=== PATIENT | female | born 1940 | race Caucasian/White ===

== ENCOUNTER 2025-01-07 12:19 | Emergency (ER) | payer OTHER ==
[~2025-01-07] VITALS: Ht 167.6 cm; Wt 65.5 kg
[~2025-01-07 12:19] MED LIST: BRIM0.2S17 EACHEYE; FURO20TA4 PO; LATA0.008 EACHEYE; LEVO25TA6 PO; POTA8TAB38 PO
[2025-01-07 12:41] VITALS: BP 134/84; TEMP 98.4
[2025-01-07 12:45] VITALS: PULSE 81; RESP 17; O2SAT 97
--- NOTE | 2025-01-07 13:34 | ED.PDOC ---
SOB-HPI HPI Comments 84 year old female presents to the ED with chief complaint of SOB. Patient reports that she has been experiencing SOB with tightness in her chest for the past 2 days, using her albuterol breathing treatments through a nebulizer every 6 hours. Patient relays that she believes her symptoms were aggravated by environmental allergies. Patient states she is taking Lasix for leg edema at this time. Patient declines to have steroids ordered for her along with declining to be admitted today. Patient denies any chest pain, cough, fever, chills, dizziness, or hemoptysis. Chief Complaint: Shortness of Breath Time Seen by MD: 13:29 Reviewed notes: Nurses Notes, Medications, Allergies Information Source: Patient, Spouse Mode of Arrival: EMS Severity: Moderate Timing: Days Duration: Since onset Context: At Rest PE Risk Factors: None History of: Asthma Prehospital treatment: Breathing Tx Modifying Factors: Nothing Associated Signs and Symptoms: None Past Medical History PAST MEDICAL HISTORY: Asthma, Thyroid Surgical History: Denies all surgeries VACUUM METALIZING SUPERVISOR History: Denies all VACUUM METALIZING SUPERVISOR Hx Family History Family History: Reviewed,noncontributory to illness Social History Smoker: Non-Smoker Alcohol: Denies ETOH Use Drugs: Denies Drug Use Lives In: Home Constitutional: denies: chills, diaphoresis, fatigue, fever, malaise, sweats, weakness, others EENTM: denies: blurred vision, double vision, ear bleeding, ear discharge, ear drainage, ear pain, ear ringing, eye pain, eye redness, hearing loss, mouth pain, mouth swelling, nasal discharge, nose bleeding, nose congestion, nose pain, photophobia, tearing, throat pain, throat swelling, voice changes, others Respiratory: reports: shortness of breath; denies: cough, hemoptysis, orthopnea, SOB at rest, SOB with excertion, stridor, wheezing, others Cardiovascular: denies: chest pain, dizzy spells, diaphoresis, Dyspnea on exertion, edema, irregular heart beat, left arm pain, lightheadedness, palpitations, PND, syncope, others Gastrointestinal: denies: abdomen distended, abdominal pain, blood streaked bowels, constipated, diarrhea, dysphagia, difficulty swallowing, hematemesis, melena, nausea, poor appetite, poor fluid intake, rectal bleeding, rectal pain, vomiting, others Genitourinary: denies: abnormal vagina bleeding, burning, dyspareunia, dysuria, flank pain, frequency, hematuria, incontinence, pain, , vagina discharge, urgency, others Neurological: denies: dizziness, fainting, headache, left sided numbness, left sided weakness, numbness, paresthesia, pre-existing deficit, right sided numbness, right sided weakness, seizure, speech problems, tingling, tremors, weakness, others Musculoskeletal: denies: back pain, gout, joint pain, joint swelling, muscle pain, muscle stiffness, neck pain, others Integumetry: denies: bruises, change in color, change in hair/nails, dryness, laceration, lesions, lumps, rash, wounds, others Allergic/Immunocompromised: denies: Difficulty Healing, Frequent Infections, Hives, Itching, others Hematologic/Lymphatic: denies: anemia, blood clots, easy bleeding, easy bruising, swollen glands, others Endocrine: denies: excessive hunger, excessive sweating, excessive thirst, excessive urination, flushing, intolerance to cold, intolerance to heat, unexplained weight gain, unexplained weight loss, others Psychiatric: denies: anxiety, bipolar disorder, depression, hopeless, panic disorder, schizophrenia, sleepless, suicidal, others All Other Systems: Reviewed and Negative Physical Exam General Appearance: No Apparent Distress HEENT: Other (Pupils and face symmetric. Moist mucous membranes.) Neck: Full Range of Motion, Normal Inspection Respiratory: Decreased Breath Sounds, No Accessory Muscle Use, No Respiratory Distress, Other (Note: Patient examined while on supplemental oxygen at 2 L nasal cannula) Cardiovascular: No JVD, No Murmur, Regular Rate/Rhythm Breast Exam: Deferred Gastrointestinal: Non Tender, Soft Genitalia: Deferred Pelvic: Deferred Rectal: Deferred Extremities: Leg edema, Normal range of motion, Non-tender, Pedal edema Musculoskeletal : Apperance: Normal Neurologic: Alert (Oriented x4), Normal Affect, Normal Mood, Other (Ambulatory without difficulty.) Cerebellar Function: NOT DONE Reflexes: NOT DONE Skin: Dry, Normal Color, Warm Lymphatic: NOT DONE EKG EKG : Comments Sinus rhythm, rate 88, normal intervals, normal axis, normal QRS, nonspecific T change. Was a procedure done? Was a procedure done?: No Differential Dx Differential Diagnosis: Asthma, Bronchitis, CHF, COPD, Hyperventilation, Myocardial infarction, Pneumonia, Pulmonary Embolism, Respiratory Distress, URI X-Ray, Labs, Meds, VS Vital Signs Date Time Temp Pulse Resp B/P (MAP) Pulse Ox O2 Delivery O2 Flow Rate FiO2 01/07/25 12:45 81 17 97 Nasal Cannula* 3 32 01/07/25 12:41 81 17 97 Nasal Cannula 2.0 01/07/25 12:41 98.4 81 17 134/84 (101) 97 98.4 01/07/25 12:37 16 94 Nasal Cannula* 4 36 01/07/25 12:33 98.4 89 16 143/90 (107) 94 98.4 01/07/25 12:23 88 Lab Test 01/07/25 15:02 01/07/25 14:03 01/07/25 13:38 Range/Units Troponin I High Sensitivity 24 23 </=34 ng/L Urine Color Yellow Yellow Urine Clarity Clear Clear Urine pH 5.5 5.0-9.0 Urine Specific Ruby 1.016 1.001-1.035 Urine Protein Trace H Negative Urine Ketones Negative Negative Urine Blood Negative Negative /uL Urine Nitrite Negative Negative Urine Bilirubin Negative Negative Urine Urobilinogen Normal Negative mg/dL Urine Leukocyte Esterase 1+ Negative /uL Urine RBC 1 0 - 4 /hpf Urine Microscopic WBC 12 H 0-5 /HPF Urine Squamous Epithelial Cells Few <5 /hpf Urine Bacteria Few H None Seen /hpf Urine Hyaline Casts Few 0 - 2 /lpf Urine Glucose Normal Normal mg/dL White Blood Count 7.0 4.4-10.8 10^3/uL Red Blood Count 4.49 4.0-5.20 10^6/uL Hemoglobin 13.2 12.2-16.2 g/dL Hematocrit 39.7 36.0-46.0 % Mean Corpuscular Volume 88.3 80.0-100.0 fL Mean Corpuscular Hemoglobin 29.3 28.0-32.0 pg Mean Corpuscular Hemoglobin Concent 33.1 32.0-36.0 g/dL Red Cell Distribution Width 17.3 H 11.8-14.3 % Platelet Count 257 140-450 10^3/uL Mean Platelet Volume 8.2 6.9-10.8 fL Neutrophils (%) (Auto) 83.5 H 37.0-80.0 % Lymphocytes (%) (Auto) 10.1 10.0-50.0 % Monocytes (%) (Auto) 4.9 0.0-12.0 % Eosinophils (%) (Auto) 0.7 0.0-7.0 % Basophils (%) (Auto) 0.8 0.0-2.0 % Neutrophils # (Auto) 5.8 1.6-8.6 10 ^3/uL Lymphocytes # (Auto) 0.7 0.4-5.4 10 ^3/uL Monocytes # (Auto) 0.3 0-1.3 10 ^3/uL Eosinophils # (Auto) 0 0-0.8 10 ^3/uL Basophils # (Auto) 0.1 0-0.2 10 ^3/uL Nucleated Red Blood Cells 0.0 % Sodium Level 136 136-145 mmol/L Potassium Level 5.1 3.5-5.1 mmol/L Chloride Level 101 98-107 mmol/L Carbon Dioxide Level 29 20-31 mmol/L Anion Gap 6 5-15 Blood Urea Nitrogen 21 9-23 mg/dL Creatinine 0.83 0.550-1.02 mg/dL Glomerular Filtration Rate Calc 69 >90 mL/min BUN/Creatinine Ratio 25.3 H 10.0-20.0 Serum Glucose 101 74-106 mg/dL Calcium Level 9.9 8.7-10.4 mg/dL Total Bilirubin 0.6 0.2-1.0 mg/dL Aspartate Amino Transferase (AST) 62 H 13-40 U/L Alanine Aminotransferase (ALT) 170 H 7-40 U/L Alkaline Phosphatase 91 46-116 U/L B-Type Natriuretic Peptide 1030.24 0-100 pg/mL Total Protein 6.4 5.7-8.2 g/dL Albumin 4.3 3.2-4.8 g/dL PROCEDURE(s): CXRP - CHEST PORTABLE REASON: sob ORDER NUMBER(s): [id number], ACCESSION NUMBER(s): [id number] CHEST RADIOGRAPH Indication: sob Technique: Single frontal view of the chest was obtained Comparison: None FINDINGS: Lines and Tubes: None Lungs: Perihilar fullness with mild interstitial prominence. Minimal blunting of the left costophrenic angle. No pneumothorax. Cardiomediastinal contours: Size is within normal limits with mild atherosclerotic calcification and uncoiling of the aorta. Bones: No acute osseous abnormality. IMPRESSION: Mild interstitial prominence with perihilar fullness which may represent pulmonary edema /atypical pneumonia with trace left-sided pleural effusion. X-Ray, Labs, Meds, VS Comment 84-year-old female with a history of asthma, thyroid disease, states she is on Lasix for edema, brought in by for evaluation of difficulty breathing despite using her home nebulizer multiple times Initial vitals remarkable for hypoxia, oxygen saturation 94% on 4 L nasal cannula. Patient is not on home O2 . Exam remarkable for diminished breath sounds at lung bases, lower extremity edema Rhythm strip independently interpreted by me: Sinus rhythm, rate 88, no ectopy. Chest x-ray IMPRESSION: Mild interstitial prominence with perihilar fullness which may represent pulmonary edema /atypical pneumonia with trace left-sided pleural effusion. CBC unremarkable, CMP unremarkable, BNP 1030.24, 1st troponin negative, UA abnormal consistent with UTI The following was ordered for the patient: Albuterol 5 mg/Atrovent 0.5 mg nebulized, Lasix 40 mg IV. The patient refused the breathing treatment, stating it was too soon after her last breathing treatment at home. Patient also refused an IV steroid. Advised the patient and her spouse that I would be recommending hospital admission. The patient refused hospital admission, stating she would prefer to go home and follow-up with her primary doctor. I had advised the patient of the risks including persistent or worsening symptoms, permanent disability or . She expressed understanding and insisted that she did not want to be admitted and would prefer to go home. She was alert, oriented x4 and capable of making informed decisions at the time she signed out against medical advice. Patient was advised to seek immediate medical attention for persistent or worsening symptoms. Time of 1ST Reevaluation: 14:29 Reevaluation 1ST: Unchanged Patient Education/Counseling: Diagnosis, Treatment Family Education/Counseling: Diagnosis, Treatment Additional Information -Reviewed patient's previous visit(s): - The following tests were ordered, and results were reviewed by me: - Additional information was gathered from interviewing the following i ndependent Historian: - I reviewed and agreed with the following test results read by other provider: - I discussed treatments and results with medical personnel and: patient Comprehensive systems review obtained and negative except for what is stated in the HPI. Departure 1 Departure Time of Disposition: 16:02 Impression: Primary Impression: Respiratory failure Qualified Codes: J96.01 - Acute respiratory failure with hypoxia Additional Impressions: CHF (congestive heart failure) Qualified Codes: I50.9 - Heart failure, unspecified Asthma exacerbation Qualified Codes: J45.901 - Unspecified asthma with (acute) exacerbation Disposition: LEFT AGAINST MEDICAL ADVICE Condition: Fair Additional Instructions: You are leaving against medical advice. Seek immediate medical attention for persistent or worsening symptoms. Discharged With: Spouse Critical Care Note Critical Care Time?: No Stability Stability form required: No Heart Score Heart Score: Heart Score Response (Comments) Value History N/A 0 EKG N/A 0 Age N/A 0 Risk Factors N/A 0 Troponin N/A 0 Total 0 I personally scribed for JASON OWENS MD ([email or web address]) on 01/07/25 at 13:34. Electronically submitted by Dung Braga ([email or web address]). JASON OWENS MD Jan 07, 2025 13:34
[2025-01-07] MEDS: IPRATROPIUM BROM 0.5 MG/2.5ML INH SOL NEB ONE (13:45)
[2025-01-07] MEDS: ALBUTEROL SULF 2.5 MG/0.5ML(0.5%) NEB SOLN NEB ONE (13:46)
[2025-01-07 14:00] LABS: Basophils # (auto) 0.1 10 ^3/uL (0-0.2); Basophils % (auto) 0.8 % (0.0-2.0); Eosinophils # (auto) 0 10 ^3/uL (0-0.8); Eosinophils % (auto) 0.7 % (0.0-7.0); Hematocrit 39.7 % (36.0-46.0); Hemoglobin 13.2 g/dL (12.2-16.2); Lymphocytes # (auto) 0.7 10 ^3/uL (0.4-5.4); Lymphocytes % (auto) 10.1 % (10.0-50.0); Mean Corpuscular Hemoglobin 29.3 pg (28.0-32.0); Mean Corpuscular Hgb Conc. 33.1 g/dL (32.0-36.0); Mean Corpuscular Volume 88.3 fL (80.0-100.0); Monocytes # (auto) 0.3 10 ^3/uL (0-1.3); Monocytes % (auto) 4.9 % (0.0-12.0); Neutrophils # (auto) 5.8 10 ^3/uL (1.6-8.6); Neutrophils % (auto) 83.5 % (37.0-80.0); Platelet Count (auto) 257 10^3/uL (140-450); Red Blood Cells 4.49 10^6/uL (4.0-5.20); Red Cell Distribution Width 17.3 % (11.8-14.3)
[2025-01-07 14:16] LABS: Albumin 4.3 g/dL (3.2-4.8); Alkaline Phosphatase 91 U/L (46-116); Anion Gap 6 (5-15); BUN/Creatinine Ratio 25.3 (10.0-20.0); Blood Urea Nitrogen 21 mg/dL (9-23); Calcium 9.9 mg/dL (8.7-10.4); Carbon Dioxide 29 mmol/L (20-31); Chloride 101 mmol/L (98-107); Glucose 101 mg/dL (74-106); Potassium 5.1 mmol/L (3.5-5.1); Sodium 136 mmol/L (136-145); Total Protein 6.4 g/dL (5.7-8.2)
[2025-01-07 14:17] LABS: Bilirubin, Total 0.6 mg/dL (0.2-1.0)
[2025-01-07 14:18] LABS: Alanine Aminotransferase 170 U/L (7-40); Aspartate Aminotransferase 62 U/L (13-40)
[2025-01-07 14:45] LABS: Urine Bacteria FEW /hpf (None Seen); Urine Blood Negative /uL (Negative); Urine Clarity Clear (Clear); Urine Color Yellow (Yellow); Urine Hyaline Cast FEW /lpf (0 - 2); Urine Protein, UAD TRACE (Negative); Urine Specific Gravity 1.016 (1.001-1.035); Urine Squamous Epithelial Cell FEW /hpf (<5); Urine Urobilinogen Normal (Negative); Urine WBC 12 /HPF (0-5); Urine pH 5.5 (5.0-9.0)
--- NOTE | 2025-01-07 14:45 | DVH ---
CHEST RADIOGRAPH Indication: sob Technique: Single frontal view of the chest was obtained Comparison: None FINDINGS: Lines and Tubes: None Lungs: Perihilar fullness with mild interstitial prominence. Minimal blunting of the left costophrenic angle. No pneumothorax. Cardiomediastinal contours: Size is within normal limits with mild atherosclerotic calcification and uncoiling of the aorta. Bones: No acute osseous abnormality. IMPRESSION: Mild interstitial prominence with perihilar fullness which may represent pulmonary edema /atypical pn eumonia with trace left-sided pleural effusion.
[2025-01-07] MEDS: FUROSEMIDE 40 MG/4 ML VIAL IV ONE (15:15)
--- NOTE | 2025-01-08 10:57 | ECG ---
[facility] Test Date: 2025-01-07 Test Time: 12:23:25 Pat Name: RAYO NORMAN Department: ED Room: Gender: F Jet [employer]ade Polisher: JOSE : 1940 Requested By: JASON KING Order Number: [id number] Reading MD: Measurements Intervals [place] Rate: 88 P: 69 NV: 134 QRS: 52 QRSD: 81 T: 13 QT: 357 QTc: 432 Interpretive Statements Sinus rhythm Please click the below link to view image of tracing.
== END 2025-01-07 17:47 | disposition left against medical advice (07) ==
LOC: EDBD 12:19 → ER 12:19
DX: J96.91 Respiratory failure, unspecified with hypoxia (principal); I50.9 Heart failure, unspecified; J45.901 Unspecified asthma with (acute) exacerbation
CPT/HCPCS: 36415; 71045; 80053; 81001; 83880; 84484; 85025; 93005

== ENCOUNTER 2025-01-08 10:00 | Inpatient (IN) | payer OTHER ==
[~2025-01-08] VITALS: Ht 154.9 cm; Wt 67.0 kg
[2025-01-08] VITALS (7 sets, daily range): BP systolic 135–140; BP diastolic 28–77; PULSE 78–99; RESP 16–22; TEMP 97.5–98.6; O2SAT 93–96
--- NOTE | 2025-01-08 10:15 | ED.PDOC ---
SOB-HPI HPI Comments 84 y.o female with PMHx of asthma and thyroid disease, presents to the ED for a chief complaint of SOB that started 3 days ago. Patient reports being seen yesterday at this ED facility, ended up leaving against medical advice but now returns due to worsening SOB. Patient is saturating at 87% on room air, was placed on 2 liters via NC with SPO2 at 96%. Patient denies any associating symptom or pain. Chief Complaint: Shortness of Breath Time Seen by MD: 10:10 Reviewed notes: Nurses Notes, Medications, Allergies Information Source: Patient Mode of Arrival: Ambulatory Severity: Moderate Timing: Days (3) Duration: Since onset Context: At Rest PE Risk Factors: None History of: Asthma Modifying Factors: Nothing Associated Signs and Symptoms: None Past Medical History PAST MEDICAL HISTORY: Asthma, Thyroid Surgical History: Denies all surgeries GASKET MAKER History: Denies all GASKET MAKER Hx Family History Family History: Reviewed,noncontributory to illness Social History Smoker: Non-Smoker Alcohol: Denies ETOH Use Drugs: Denies Drug Use Lives In: Home Constitutional: denies: chills, diaphoresis, fatigue, fever, malaise, sweats, weakness, others EENTM: denies: blurred vision, double vision, ear bleeding, ear discharge, ear drainage, ear pain, ear ringing, eye pain, eye redness, hearing loss, mouth pain, mouth swelling, nasal discharge, nose bleeding, nose congestion, nose pain, photophobia, tearing, throat pain, throat swelling, voice changes, others Respiratory: reports: SOB at rest, shortness of breath, SOB with excertion; denies: cough, hemoptysis, orthopnea, stridor, wheezing, others Cardiovascular: denies: chest pain, dizzy spells, diaphoresis, Dyspnea on exertion, edema, irregular heart beat, left arm pain, lightheadedness, palpitations, PND, syncope, others Gastrointestinal: denies: abdomen distended, abdominal pain, blood streaked bowels, constipated, diarrhea, dysphagia, difficulty swallowing, hematemesis, melena, nausea, poor appetite, poor fluid intake, rectal bleeding, rectal pain, vomiting, others Genitourinary: denies: abnormal vagina bleeding, burning, dyspareunia, dysuria, flank pain, frequency, hematuria, incontinence, pain, , vagina discharge, urgency, others Neurological: denies: dizziness, fainting, headache, left sided numbness, left sided weakness, numbness, paresthesia, pre-existing deficit, right sided numbness, right sided weakness, seizure, speech problems, tingling, tremors, weakness, others Musculoskeletal: denies: back pain, gout, joint pain, joint swelling, muscle pain, muscle stiffness, neck pain, others Integumetry: denies: bruises, change in color, change in hair/nails, dryness, laceration, lesions, lumps, rash, wounds, others Allergic/Immunocompromised: denies: Difficulty Healing, Frequent Infections, Hi ves, Itching, others Hematologic/Lymphatic: denies: anemia, blood clots, easy bleeding, easy bruising, swollen glands, others Endocrine: denies: excessive hunger, excessive sweating, excessive thirst, excessive urination, flushing, intolerance to cold, intolerance to heat, unexplained weight gain, unexplained weight loss, others Psychiatric: denies: anxiety, bipolar disorder, depression, hopeless, panic disorder, schizophrenia, sleepless, suicidal, others All Other Systems: Reviewed and Negative Physical Exam General Appearance: Moderate Distress HEENT: Normal ENT Inspection, Pharynx Normal, TMs Normal Neck: Full Range of Motion, Non-Tender, Normal, Normal Inspection Respiratory: Other (Coarse breath sounds) Cardiovascular: No Edema, No JVD, No Murmur, No Gallop, Normal Peripheral Pulses, Regular Rate/Rhythm Breast Exam: Deferred Gastrointestinal: No Organomegaly, Non Tender, No Pulsatile Mass, Normal Bowel Sounds, Soft Genitalia: Deferred Pelvic: Deferred Rectal: Deferred Extremities: No calf tenderness, Normal capillary refill, Normal inspection, N ormal range of motion, Non-tender, No pedal edema Musculoskeletal : Apperance: Normal Neurologic: Alert, belt brander II-XII nml as Tested, No Motor Deficits, Normal Affect, Normal Mood, No Sensory Deficits Cerebellar Function: NOT DONE Reflexes: NOT DONE Skin: Dry, Normal Color, Warm Peripheral Pulses: 3+ Radial (R), 3+ Radial (L) Lymphatic: No Adenopathy Was a procedure done? Was a procedure done?: No Differential Dx Differential Diagnosis: Anxiety, Asthma, Bronchitis, COPD, Hyponatremia, Pneumonia, Respiratory Distress, URI X-Ray, Labs, Meds, VS Vital Signs Date Time Temp Pulse Resp B/P (MAP) Pulse Ox O2 Delivery O2 Flow Rate FiO2 01/08/25 10:29 78 22 93 Nasal Cannula* 2 28 01/08/25 10:22 88 16 93 Nasal Cannula 01/08/25 10:22 97.5 96 16 128/78 (95) 92 97.5 01/08/25 10:10 97.8 93 18 138/83 (101) 96 97.8 01/08/25 10:10 96 Nasal Cannula* 2 28 Lab Test 01/08/25 10:12 Range/Units White Blood Count 6.6 4.4-10.8 10^3/uL Red Blood Count 4.72 4.0-5.20 10^6/uL Hemoglobin 13.8 12.2-16.2 g/dL Hematocrit 41.8 36.0-46.0 % Mean Corpuscular Volume 88.5 80.0-100.0 fL Mean Corpuscular Hemoglobin 29.1 28.0-32.0 pg Mean Corpuscular Hemoglobin Concent 33.0 32.0-36.0 g/dL Red Cell Distribution Width 18.0 H 11.8-14.3 % Platelet Count 266 140-450 10^3/uL Mean Platelet Volume 8.0 6.9-10.8 fL Neutrophils (%) (Auto) 82.1 H 37.0-80.0 % Lymphocytes (%) (Auto) 11.2 10.0-50.0 % Monocytes (%) (Auto) 5.4 0.0-12.0 % Eosinophils (%) (Auto) 0.7 0.0-7.0 % Basophils (%) (Auto) 0.6 0.0-2.0 % Neutrophils # (Auto) 5.4 1.6-8.6 10 ^3/uL Lymphocytes # (Auto) 0.7 0.4-5.4 10 ^3/uL Monocytes # (Auto) 0.4 0-1.3 10 ^3/uL Eosinophils # (Auto) 0 0-0.8 10 ^3/uL Basophils # (Auto) 0 0-0.2 10 ^3/uL Nucleated Red Blood Cells 0.1 % Sodium Level Pending Potassium Level Pending Chloride Level Pending Carbon Dioxide Level Pending Anion Gap Pending Blood Urea Nitrogen Pending Creatinine Pending Glomerular Filtration Rate Calc Pending BUN/Creatinine Ratio Pending Serum Glucose Pending Calcium Level Pending Troponin I High Sensitivity Pending B-Type Natriuretic Peptide Pending Patient alert. Complaining of shortness a breath. Was seen here yesterday for the same symptom. Placed on oxygen. History of asthma. Possible pneumonitis. WBC within normal limits. Establish intravenous access. Was given steroid. Was given Rocephin. Was given azithromycin. Reviewed her previous visit. Explained to the patient. Continue monitoring. Time of 1ST Reevaluation: 10:12 Reevaluation 1ST: Unchanged Patient Education/Counseling: Diagnosis, Treatment, Prognosis Family Education/Counseling: Diagnosis, Treatment, Prognosis Departure 1 Departure Time of Disposition: 10:42 Impression: Primary Impression: Asthma exacerbation Qualified Codes: J45.41 - Moderate persistent asthma with (acute) exacerbation Additional Impression: Pneumonia Qualified Codes: J18.9 - Pneumonia, unspecified organism Disposition: ADMITTED INPATIENT Admit to: Med Surg Condition: Guarded Critical Care Note Critical Care Time?: Yes (90 min-critical care time only) Critical care comment: Placed on oxygen Stability Stability form required: No I personally scribed for BENEDICTO SCOTT MD ([email or web address]) on 01/08/25 at 10:15. Electronically submitted by Saritha Alba ([facility]). BENEDICTO SCOTT MD Jan 08, 2025 10:15
[2025-01-08 10:25] LABS: Basophils # (auto) 0 10 ^3/uL (0-0.2); Basophils % (auto) 0.6 % (0.0-2.0); Eosinophils # (auto) 0 10 ^3/uL (0-0.8); Eosinophils % (auto) 0.7 % (0.0-7.0); Hematocrit 41.8 % (36.0-46.0); Hemoglobin 13.8 g/dL (12.2-16.2); Lymphocytes # (auto) 0.7 10 ^3/uL (0.4-5.4); Lymphocytes % (auto) 11.2 % (10.0-50.0); Mean Corpuscular Hemoglobin 29.1 pg (28.0-32.0); Mean Corpuscular Volume 88.5 fL (80.0-100.0); Monocytes # (auto) 0.4 10 ^3/uL (0-1.3); Monocytes % (auto) 5.4 % (0.0-12.0); Neutrophils # (auto) 5.4 10 ^3/uL (1.6-8.6); Neutrophils % (auto) 82.1 % (37.0-80.0); Nucleated Red Blood Cells % 0.1 %; Platelet Count (auto) 266 10^3/uL (140-450); Red Blood Cells 4.72 10^6/uL (4.0-5.20); White Blood Cell 6.6 10^3/uL (4.4-10.8)
[2025-01-08 10:30] LABS: Chloride 102 mmol/L (98-107); Potassium 4.8 mmol/L (3.5-5.1); Sodium 137 mmol/L (136-145)
[2025-01-08 10:31] LABS: Anion Gap 6 (5-15); Carbon Dioxide 29 mmol/L (20-31)
[2025-01-08 10:36] LABS: BUN/Creatinine Ratio 22.7 (10.0-20.0); Blood Urea Nitrogen 20 mg/dL (9-23)
[2025-01-08 10:43] LABS: Glucose 126 mg/dL (74-106)
[2025-01-08] MEDS ORDERED: cefTRIAXone SOD 1,000 MG VL IM ONE (10:45)
[2025-01-08] MEDS: cefTRIAXone 1GM/50ML D5W 50 ML IV ONE (10:58)
[2025-01-08] MEDS: methylPREDNISolone SOD SUCC 125 MG/2 ML VL IV ONE (10:59)
[2025-01-08] MEDS: AZITHROMYCIN 500MG/ 250ML 250 ML IV ONE (10:59)
[2025-01-08] MEDS: ALBUTEROL SULF 2.5 MG/0.5ML(0.5%) NEB SOLN NEB ONE (11:00)
[2025-01-08] MEDS: IPRATROPIUM BROM 0.5 MG/2.5ML INH SOL NEB ONE (11:00)
[2025-01-08] MEDS ORDERED: NITROGLYCERIN 0.4 MG SL TAB SL PRN (11:45)
[2025-01-08] MEDS ORDERED: MORPHINE SULFATE INJ 2 MG/ml SYRG IV PRN (11:45)
--- NOTE | 2025-01-08 11:55 | DVHHP2 ---
History of Present Illness Reason for Visit: SOB History of Present Illness 84-year-old female with a history of asthma, heart murmur, comes with a chief complaint of 4 days of shortness of breaths, she was here yesterday and did not want to stay and went home however she did not feel better and therefore she came back again She is right now complaining of shortness of breaths and swelling in her legs She has some mild dry cough She used her nebulizer at home but it did not help and therefore she came here No fever no chills no nausea no vomiting no abdominal pain Review of Systems Respiratory: Cough, Dry, Shortness of breath, SOB with excertion Allergies: Coded Allergies: NO KNOWN ALLERGIES (Unverified , 01/07/25) Medications Current Medications Medications Dose Ordered Sig/Rina Route Start Time Stop Time Status Last Admin Dose Admin Nitroglycerin 0.4 mg Q5MINP PRN SL 01/08/25 11:45 UNV Morphine Sulfate 2 mg Q30M PRN IV 01/08/25 11:45 UNV Exam Vital Signs Vital Signs Date Time Temp Pulse Resp B/P (MAP) Pulse Ox O2 Delivery O2 Flow Rate FiO2 01/08/25 11:00 16 93 Nasal Cannula* 3 32 01/08/25 10:29 78 01/08/25 10:22 97.5 128/78 (95) 97.5 General Appearance: Alert, Oriented X3, Cooperative, mild distress Respiratory: Other (Diffuse rhonchi and crackles at the bases) Cardiovascular: Regular rate, Normal S1, Normal S2, Other (Holosystolic murmur at the base and apex) Extremities: Other (2+ edema bilaterally in the lower extremities) Labs/Xrays Labs Test 01/08/25 11:12 01/08/25 10:12 Range/Units Troponin I High Sensitivity 23 </=34 ng/L White Blood Count 6.6 4.4-10.8 10^3/uL Red Blood Count 4.72 4.0-5.20 10^6/uL Hemoglobin 13.8 12.2-16.2 g/dL Hematocrit 41.8 36.0-46.0 % Mean Corpuscular Volume 88.5 80.0-100.0 fL Mean Corpuscular Hemoglobin 29.1 28.0-32.0 pg Mean Corpuscular Hemoglobin Concent 33.0 32.0-36.0 g/dL Red Cell Distribution Width 18.0 H 11.8-14.3 % Platelet Count 266 140-450 10^3/uL Mean Platelet Volume 8.0 6.9-10.8 fL Neutrophils (%) (Auto) 82.1 H 37.0-80.0 % Lymphocytes (%) (Auto) 11.2 10.0-50.0 % Monocytes (%) (Auto) 5.4 0.0-12.0 % Eosinophils (%) (Auto) 0.7 0.0-7.0 % Basophils (%) (Auto) 0.6 0.0-2.0 % Neutrophils # (Auto) 5.4 1.6-8.6 10 ^3/uL Lymphocytes # (Auto) 0.7 0.4-5.4 10 ^3/uL Monocytes # (Auto) 0.4 0-1.3 10 ^3/uL Eosinophils # (Auto) 0 0-0.8 10 ^3/uL Basophils # (Auto) 0 0-0.2 10 ^3/uL Nucleated Red Blood Cells 0.1 % Sodium Level 137 136-145 mmol/L Potassium Level 4.8 3.5-5.1 mmol/L Chloride Level 102 98-107 mmol/L Carbon Dioxide Level 29 20-31 mmol/L Anion Gap 6 5-15 Blood Urea Nitrogen 20 9-23 mg/dL Creatinine 0.88 0.550-1.02 mg/dL Glomerular Filtration Rate Calc 64 >90 mL/min BUN/Creatinine Ratio 22.7 H 10.0-20.0 Serum Glucose 126 H 74-106 mg/dL Calcium Level 10.0 8.7-10.4 mg/dL B-Type Natriuretic Peptide 750.22 0-100 pg/mL Assessment/Plan Assessment/Plan Acute hypoxic respiratory failure Systolic murmur Rule out congestive heart failure Asthma Hypothyroidism Glaucoma Pulmonary edema versus underlying pneumonia Plan Admit to telemetry Oxygen as needed Med neb treatments as needed IV steroids Empirical IV antibiotics Lasix IV Echo Cardiology consult Check the TSH Check the lipid panel in the morning Monitor closely Full code Plan discussed with: Patient My Orders Orders - SELVIN GARRETT MD Procedure Category Date Status Time Admit ADMIT 01/08/25 Transmitted 11:45 Nitroglycerin PHA 01/08/25 Logged Sublingual (Ntrostat 11:45 Morphine Sulfate PHA 01/08/25 Logged Injection 11:45 Stat Ekg For Chest [facility] 01/08/25 In Process Pain 11:45 Notify Of Changes [facility] 01/08/25 In Process From Base 11:45 Senior Project [employer] [place] 01/08/25 In Process 24 Hours 11:45 Emergency Dysrhythmia [facility] 01/08/25 In Process Protocol 11:45 Rhythm Strips Once [place] 01/08/25 In Process Every Shift 11:45 Oxygen By Nasal RT 01/08/25 Transmitted Cannula 11:45 Cardiac DIET 01/08/25 Transmitted Diet-2gna,Lofat,Lochol Lunch Echo 2d Mode Cardiac US 01/08/25 Logged DOP 11:46 Comprehensive LAB 01/09/25 Verified Metabolic Panel 04:00 Magnesium LAB 01/09/25 Verified 04:00 Thyroid Stimulating LAB 01/09/25 Verified Hormone 04:00 Date of Service: Jan 08, 2025 Billing Provider: SELVIN GARRETT MD Common Visit Codes: NOT BILLABLE SELVIN GARRETT MD Jan 08, 2025 11:54
[2025-01-08] MEDS ORDERED: ONDANSETRON HCL 4 MG/2 ML VIAL IV PRN (12:00)
[2025-01-08] MEDS ORDERED: ACETAMINOPHEN 325 MG TAB PO PRN (12:00)
[2025-01-08] MEDS ORDERED: ALPRAZolam 0.25 MG TAB PO PRN (12:00)
[2025-01-08] MEDS ORDERED: ZOLPIDEM TARTRATE 5 MG TAB PO PRN (12:00)
[2025-01-08] MEDS: FAMOTIDINE 20 MG TAB PO ONE (12:15)
[2025-01-08] MEDS: FUROSEMIDE 40 MG/4 ML VIAL IV ONE (12:22)
[2025-01-08 12:55] LABS: Urine Bacteria FEW /hpf (None Seen); Urine Blood Negative /uL (Negative); Urine Clarity Clear (Clear); Urine Color Yellow (Yellow); Urine Protein, UAD TRACE (Negative); Urine Specific Gravity 1.014 (1.001-1.035); Urine Squamous Epithelial Cell FEW /hpf (<5); Urine Urobilinogen Normal (Negative); Urine WBC 3 /HPF (0-5); Urine pH 6.5 (5.0-9.0)
--- NOTE | 2025-01-08 14:23 | DVH ---
INDICATION: sob TECHNIQUE: Frontal view of the chest. COMPARISON: XY CHEST PORTABLE on DOS: 01/07/25 FINDINGS: . The heart and mediastinal contours are grossly unremarkable. There is no evidence of pleural disea se. The lungs are clear. The bony structures of the chest are intact without fracture. IMPRESSION: Mild pulmonary edema
[2025-01-08] MEDS: FUROSEMIDE 40 MG/4 ML VIAL IV SCH (18:39)
[2025-01-08] MEDS: DOXYCYCLINE 100 MG TAB/CAP PO SCH (22:22)
[2025-01-08] MEDS: methylPREDNISolone SOD SUCC 125 MG/2 ML VL IV SCH (22:22)
[2025-01-09] VITALS (10 sets, daily range): BP systolic 103–130; BP diastolic 64–71; PULSE 78–93; RESP 16–18; TEMP 97.6–98.2; O2SAT 93–97
[2025-01-09] MEDS: LEVOTHYROXINE SODIUM 25 MCG TAB PO SCH (05:36)
[2025-01-09 06:46] LABS: Albumin 4.1 g/dL (3.2-4.8); Alkaline Phosphatase 75 U/L (46-116); Anion Gap 8 (5-15); Aspartate Aminotransferase 35 U/L (13-40); BUN/Creatinine Ratio 20.8 (10.0-20.0); Blood Urea Nitrogen 21 mg/dL (9-23); Calcium 9.3 mg/dL (8.7-10.4); Carbon Dioxide 28 mmol/L (20-31); Chloride 102 mmol/L (98-107); Potassium 4.9 mmol/L (3.5-5.1); Sodium 138 mmol/L (136-145); Total Protein 6.7 g/dL (5.7-8.2)
[2025-01-09 06:47] LABS: Alanine Aminotransferase 121 U/L (7-40); Bilirubin, Total 0.6 mg/dL (0.2-1.0); Glucose 133 mg/dL (74-106)
[2025-01-09] MEDS: FAMOTIDINE 20 MG TAB PO SCH (08:47)
[2025-01-09] MEDS: ENOXAPARIN SOD 30 MG/0.3 ML SYRINGE SC SCH (10:34)
[2025-01-09] MEDS: cefTRIAXone 1GM/50ML D5W 50 ML IV SCH (10:53)
--- NOTE | 2025-01-09 11:47 | DVHPN2 ---
Subjective She feels better Less edema in her legs Less shortness of breath Echocardiogram is pending Changes from previous H/P or p: Changes Respiratory: Cough, Dry, Shortness of breath, SOB with excertion Objective Vitals Vital Signs Date Time Temp Pulse Resp B/P (MAP) Pulse Ox O2 Delivery O2 Flow Rate FiO2 01/09/25 10:10 97 Nasal Cannula 2.0 01/09/25 10:10 28 01/09/25 08:51 97.7 92 16 103/65 (78) 97.7 Intake/Output Intake and Output 01/09/25 07:00 Intake Total 375 ml Balance 375 ml Intake Oral 200 ml IV Total 175 ml # Voids 2 General Appearance: Alert, Oriented X3, Cooperative, No acute distress Lungs: Other (Bilateral crackles at the bases) Cardiovascular: Regular rate, Normal S1, Normal S2, No murmurs Abdomen: Normal bowel sounds, Soft, No tenderness Extremities: Other (1+ edema bilaterally in her lower extremities) Medications Current Medications Medications Dose Ordered Sig/Rina Route Start Time Stop Time Status Last Admin Dose Admin Nitroglycerin 0.4 mg Q5MINP PRN SL 01/08/25 11:45 Morphine Sulfate 2 mg Q30M PRN IV 01/08/25 11:45 Acetaminophen 650 mg Q6HP PRN PO 01/08/25 12:00 Ondansetron HCl 4 mg Q4HPRN PRN IV 01/08/25 12:00 Furosemide 40 mg BIDD IV 01/08/25 18:00 01/09/25 05:35 40 MG Ceftriaxone Sodium 50 ml @ 100 mls/hr DAILY@09 IV 01/09/25 09:00 01/09/25 10:53 100 MLS/HR Doxycycline Monohydrate 100 mg Q12HR PO 01/08/25 22:00 01/09/25 08:47 100 MG Levothyroxine Sodium 75 mcg QAM@0600 PO 01/09/25 06:00 01/09/25 05:36 75 MCG Albuterol 2.5 mg Q4HPRN PRN NEB 01/08/25 12:00 Ipratropium Distant 0.5 mg Q4HPRN PRN NEB 01/08/25 12:00 Zolpidem Tartrate 5 mg HSPRN PRN PO 01/08/25 12:00 Alprazolam 0.25 mg Q8HP PRN PO 01/08/25 12:00 Enoxaparin Sodium 30 mg DAILY SC 01/09/25 10:00 01/09/25 10:34 30 MG Famotidine 20 mg DAILY PO 01/09/25 10:00 01/09/25 08:47 20 MG Methylprednisolone Sodium Succinate 40 mg BID IV 01/08/25 22:00 01/09/25 08:46 40 MG Laboratory Results Laboratory Tests 01/08/25 10:12 01/09/25 05:54 Chemistry Test 01/09/25 05:54 Albumin 4.1 g/dL (3.2-4.8) Calcium Level 9.3 mg/dL (8.7-10.4) Magnesium Level 2.0 mg/dL (1.6-2.6) Total Protein 6.7 g/dL (5.7-8.2) LFT Test 01/09/25 05:54 Alanine Aminotransferase (ALT) 121 U/L (7-40) H Alkaline Phosphatase 75 U/L (46-116) Aspartate Amino Transferase (AST) 35 U/L (13-40) Total Bilirubin 0.6 mg/dL (0.2-1.0) HgA1c, TSH Test 01/09/25 05:54 Thyroid Stimulating Hormone (TSH) 0.98 uIU/mL (0.55-4.78) Urinalysis Test 01/08/25 10:25 Urine Color Yellow (Yellow) Urine Clarity Clear (Clear) Urine pH 6.5 (5.0-9.0) Urine Specific [place] 1.014 (1.001-1.035) Urine Protein Trace (Negative) H Urine Ketones Negative (Negative) Urine Blood Negative /uL (Negative) Urine Nitrite Negative (Negative) Urine Bilirubin Negative (Negative) Urine Urobilinogen Normal mg/dL (Negative) Urine Leukocyte Esterase 1+ /uL (Negative) Urine RBC None seen /hpf (0 - 4) Urine Microscopic WBC 3 /HPF (0-5) Urine Squamous Epithelial Cells Few /hpf (<5) Urine Bacteria Few /hpf (None Seen) H Urine Glucose Normal mg/dL (Normal) Assessment/Plan Assessment/Plan Acute hypoxic respiratory failure Systolic murmur Rule out congestive heart failure Asthma Hypothyroidism Glaucoma Pulmonary edema versus underlying pneumonia Plan Admit to telemetry Oxygen as needed Med neb treatments as needed IV steroids Empirical IV antibiotics Lasix IV Echo Cardiology consult Check the TSH Check the lipid panel in the morning Monitor closely Full code 01/09/2025: Continue IV Lasix Echocardiogram is pending Cardiology consult IV antibiotics Monitor closely The rest of the management will depend on the hospital course Plan discussed with: Patient My Orders Orders - SELVIN GARRETT MD Procedure Category Date Status Time Admit ADMIT 01/08/25 Transmitted 11:45 Nitroglycerin PHA 01/08/25 In Process Sublingual (Ntrostat 11:45 Morphine Sulfate PHA 01/08/25 In Process Injection 11:45 Stat Ekg For Chest [place] 01/08/25 In Process Pain 11:45 Notify Md Of Changes [place] 01/08/25 In Process From Base 11:45 Advanced Nursing Professor For [place] 01/08/25 In Process 24 Hours 11:45 Emergency Dysrhythmia [place] 01/08/25 In Process Protocol 11:45 Rhythm Strips Once [place] 01/08/25 In Process Every Shift 11:45 Oxygen By Nasal RT 01/08/25 Transmitted Cannula 11:45 Cardiac DIET 01/08/25 Transmitted Diet-2gna,Lofat,Lochol Lunch Acetaminophen Tablet PHA 01/08/25 In Process (Tylenol Tablet) 12:00 Ondansetron Hcl PHA 01/08/25 In Process (Zofran) 12:00 Furosemide Injection PHA 01/08/25 In Process (Lasix Injection) 18:00 Ceftriaxone 1gm/50ml PHA 01/09/25 In Process D5w (Rocephin) 09:00 Doxycycline Tablet PHA 01/08/25 In Process (Vibramycin Tablet) 22:00 * Cardiology Consult CONS 01/08/25 Transmitted 11:47 Levothyroxine Tablet PHA 01/09/25 In Process (Synthroid Tablet) 06:00 Albuterol Medneb PHA 01/08/25 In Process (Ventolin Medneb) 12:00 Ipratropium Medneb PHA 01/08/25 In Process (Atrovent Medneb) 12:00 Zolpidem Tartrate PHA 01/08/25 In Process (Ambien) 12:00 Alprazolam Tablet PHA 01/08/25 In Process (Xanax Tablet) 12:00 Enoxaparin Sodium PHA 01/09/25 In Process (Lovenox) 10:00 Famotidine Tablet PHA 01/09/25 In Process (Pepcid Tablet) 10:00 Code Status CODE 01/08/25 Transmitted 11:54 Methylprednisolone PHA 01/08/25 In Process Sod Succ (Solu Medrol 22:00 Echo 2d Mode Cardiac US 01/09/25 Logged DOP 11:46 Date of Service: Jan 09, 2025 Billing Provider: SELVIN GARRETT MD Common Visit Codes: NOT BILLABLE SELVIN GARRETT MD Jan 09, 2025 11:47
--- NOTE | 2025-01-09 14:01 | ECG ---
[facility] Test Date: 2025-01-08 Test Time: 10:17:15 Pat Name: RAYO NORMAN Department: [facility] Gender: F Career Development Specialist: MR CALZADAB: 1940 Requested By: BENEDICTO SCOTT Order Number: [id number] Reading MD: Hi Merrill Measurements Intervals [place] Rate: 86 P: 74 GA: 135 QRS: 68 QRSD: 81 T: 6 QT: 367 QTc: 439 Interpretive Statements Sinus rhythm Ventricular premature complex Probable left atrial enlargement Probable anteroseptal infarct, old Electronically Signed On 01-11-2025 12:56:39 PDT by Hi Merrill Please click the below link to view image of tracing.
[2025-01-10] VITALS (11 sets, daily range): BP systolic 93–160; BP diastolic 58–74; PULSE 81–98; RESP 18–20; TEMP 97.6–98.3; O2SAT 88–100
[2025-01-10 07:03] LABS: Anion Gap 6 (5-15); Calcium 9.8 mg/dL (8.7-10.4); Chloride 98 mmol/L (98-107); Potassium 4.3 mmol/L (3.5-5.1); Sodium 137 mmol/L (136-145)
[2025-01-10 07:09] LABS: BUN/Creatinine Ratio 31.5 (10.0-20.0)
[2025-01-10 07:11] LABS: Blood Urea Nitrogen 28 mg/dL (9-23); Carbon Dioxide 33 mmol/L (20-31); Glucose 114 mg/dL (74-106)
--- NOTE | 2025-01-10 09:39 | DVHPN2 ---
Subjective She is still congested with crackles at the bases of the lungs and 2+ edema in her legs Changes from previous H/P or p: Changes Respiratory: Cough, Dry, Shortness of breath, SOB with excertion Objective Vitals Vital Signs Date Time Temp Pulse Resp B/P (MAP) Pulse Ox O2 Delivery O2 Flow Rate FiO2 01/10/25 09:00 98.3 98 18 160/58 (92) 98 98.3 01/10/25 08:10 Nasal Cannula* 2 28 Intake/Output Intake and Output 01/10/25 07:00 Intake Total 1150 ml Balance 1150 ml Intake Oral 1100 ml IV Total 50 ml # Voids 7 # Bowel Movements 1 General Appearance: Alert, Oriented X3, Cooperative, No acute distress Lungs: Other (Bilateral crackles at the bases) Cardiovascular: Regular rate, Normal S1, Normal S2, No murmurs Abdomen: Normal bowel sounds, Soft, No tenderness Extremities: Other (1+ edema bilaterally in her lower extremities) Medications Current Medications Medications Dose Ordered Sig/Rina Route Start Time Stop Time Status Last Admin Dose Admin Nitroglycerin 0.4 mg Q5MINP PRN SL 01/08/25 11:45 Morphine Sulfate 2 mg Q30M PRN IV 01/08/25 11:45 Acetaminophen 650 mg Q6HP PRN PO 01/08/25 12:00 Ondansetron HCl 4 mg Q4HPRN PRN IV 01/08/25 12:00 Furosemide 40 mg BIDD IV 01/08/25 18:00 01/10/25 05:23 40 MG Ceftriaxone Sodium 50 ml @ 100 mls/hr DAILY@09 IV 01/09/25 09:00 01/10/25 08:58 100 MLS/HR Doxycycline Monohydrate 100 mg Q12HR PO 01/08/25 22:00 01/10/25 08:59 100 MG Levothyroxine Sodium 75 mcg QAM@0600 PO 01/09/25 06:00 01/10/25 05:28 75 MCG Albuterol 2.5 mg Q4HPRN PRN NEB 01/08/25 12:00 Ipratropium [place] 0.5 mg Q4HPRN PRN NEB 01/08/25 12:00 Zolpidem Tartrate 5 mg HSPRN PRN PO 01/08/25 12:00 Alprazolam 0.25 mg Q8HP PRN PO 01/08/25 12:00 Enoxaparin Sodium 30 mg DAILY SC 01/09/25 10:00 01/10/25 09:00 30 MG Famotidine 20 mg DAILY PO 01/09/25 10:00 01/10/25 08:58 20 MG Methylprednisolone Sodium Succinate 40 mg BID IV 01/08/25 22:00 01/10/25 08:59 40 MG Laboratory Results Laboratory Tests 01/08/25 10:12 01/10/25 05:22 Chemistry Test 01/10/25 05:22 Calcium Level 9.8 mg/dL (8.7-10.4) Urinalysis Test 01/08/25 10:25 Urine Color Yellow (Yellow) Urine Clarity Clear (Clear) Urine pH 6.5 (5.0-9.0) Urine Specific [place] 1.014 (1.001-1.035) Urine Protein Trace (Negative) H Urine Ketones Negative (Negative) Urine Blood Negative /uL (Negative) Urine Nitrite Negative (Negative) Urine Bilirubin Negative (Negative) Urine Urobilinogen Normal mg/dL (Negative) Urine Leukocyte Esterase 1+ /uL (Negative) Urine RBC None seen /hpf (0 - 4) Urine Microscopic WBC 3 /HPF (0-5) Urine Squamous Epithelial Cells Few /hpf (<5) Urine Bacteria Few /hpf (None Seen) H Urine Glucose Normal mg/dL (Normal) Assessment/Plan Assessment/Plan Acute hypoxic respiratory failure Systolic murmur Rule out congestive heart failure Asthma Hypothyroidism Glaucoma Pulmonary edema versus underlying pneumonia Plan Admit to telemetry Oxygen as needed Med neb treatments as needed IV steroids Empirical IV antibiotics Lasix IV Echo Cardiology consult Check the TSH Check the lipid panel in the morning Monitor closely Full code 01/09/2025: Continue IV Lasix Echocardiogram is pending Cardiology consult IV antibiotics Monitor closely The rest of the management will depend on the hospital course 01/10/2025: Echocardiogram is pending Continue IV Lasix Fluid restriction 1.5 L per 24 hours Discussed with the daughter at the bedside Monitor closely Cardiology consult is pending Plan discussed with: Patient, Daughter Date of Service: Jan 10, 2025 Billing Provider: SELVIN GARRETT MD Common Visit Codes: NOT BILLABLE SELVIN GARRETT MD Jan 10, 2025 09:39
--- NOTE | 2025-01-10 13:56 | DVHSR ---
APPROVED REPORT EXAM: Two-dimensional and M-mode echocardiogram with Doppler and color Doppler. Blood Pressure: 112/71 mmHg INDICATION CHF RISK FACTORS Height: 5'1, Weight: 147 DIMENSIONS LVDd4.2 (3.8-5.7cm)LA (2D)5.1 (1.9-4.0cm)Aortic Root2.8 (2.0-3.7cm) LVDs2.6 (2.5-4.0cm)LA (MM) (1.9-4.0cm)Aortic Cusp Exc0.9 (1.5-2.0cm) EF (%) 60.0 (55-70%)Rt. Atrium3.5 (1.9-4.0cm)Asc. Aorta3.4 cm IVSd1.1 (0.7-1.1cm)RV (D) (1.8-2.4cm) PWd1.2 (0.7-1.1cm) Mitral Valve MitralMitral Stenosis E wavem/sMV Mean GR.9mmHg A wavem/sMV Peak GR.94mmHg E/A ratio0.02D MVAcm2 Aortic Valve Aortic ValveAortic Stenosis V11.41m/Mayte Mean GR.4mmHg V21.46m/Mayte Peak GR.9mmHg LVOT Diameter1.7 (1.8-2.4cm)Doppler AVA2.19cm2 Pulmonic Valve V20.87m/s Tricuspid Valve TR Velocity3.78m/s [id number] Conclusion There is moderate concentric left ventricular hypertrophy Left ventricular systolic function is preserved Ejection fraction is estimated at 60% Left atrium is severely dilated There is moderate to severe mitral annular calcification Mitral valve leaflet is calcified with restricted motion There is moderate mitral stenosis There is mild mitral regurgitation Aortic valve is calcified without evidence of significant stenosis There is [id number] tricuspid regurgitation There is moderate pulmonary hypertension estimated at 58 mmHg There is no pericardial effusion
--- NOTE | 2025-01-10 21:48 | DVHINCON2 ---
DATE OF CONSULTATION: 01/10/2025 CARDIOLOGY CONSULTATION REFERRING PHYSICIAN: Dr. Pizano CONSULTING PHYSICIAN: Alyce Zaragoza MD INDICATION: Shortness of breath. HISTORY OF PRESENT ILLNESS: The patient is an 84-year-old female with history of hypertension, mitral stenosis, dyslipidemia, asthma, presented to the hospital with complaints of worsening shortness of breath. She was admitted with a diagnosis of pneumonia and congestive heart failure, currently on IV Lasix and IV antibiotics with improvement in her symptoms. Denies any chest pain. PAST MEDICAL HISTORY: * Hypertension. * Mitral stenosis. * Asthma. * Dyslipidemia. MEDICATIONS: Per med rec. ALLERGIES: No known drug allergies. PHYSICAL EXAMINATION: GENERAL: Alert and awake, in no form of cardiopulmonary distress. VITAL SIGNS: Blood pressure 116/58, pulse 98 per minute, saturation 98%. HEENT: No carotid bruits. No jugular venous distention. CHEST: Bilateral air entry. Scattered wheeze and rhonchi and coarse crackles. CARDIOVASCULAR: Precordial and carotid pulses palpable. Normal S1, S2. There is a grade 3/6 diastolic murmur best heard over the base. EXTREMITIES: Bilateral trace edema. DIAGNOSTIC DATA: White count 6, hemoglobin 13, platelet is 266. Sodium 137, potassium 4.3, creatinine 0.8, troponin was negative. BNP 750. ASSESSMENT: * Worsening shortness of breath multifactorial. * Decompensated heart failure. * Pneumonia. * History of mitral stenosis. * Hypertension. RECOMMENDATIONS: * Agree with diuresis. * Continue IV Lasix. * Continue IV antibiotics. * Monitor electrolytes and renal function closely. * We will review echo once completed. * Continue telemetry monitoring. Thank you for allowing me to partake in the care of this patient. MD TU Ellis/AUSTYN/ALAN/LISHA TID: [id number] RECEIPT: [id number]
--- NOTE | 2025-01-10 23:24 | DVHINCON2 ---
Date of service: Jan 10, 2025 Referring Physician Joann Pizano MD Reason for Consultation Acute hypoxic respiratory failure, asthma, pulmonary edema, pneumonia and pulmonary hypertension History of Present Illness An 84-year-old woman with past medical history of asthma and heart murmur, who presented to ED on 01/08/25 with a chief complaint of 4 days of shortness of breath. Pt was in the hospital day prior to presentation but did not want to stay and went home; however, she did not feel better and returned to ED. Patient complained of ongoing shortness of breath and swelling in her legs as well as mild dry cough. Pt used her nebulizer at home with no relief, thus presented for care. No fever, chills, nausea, vomiting or abdominal pain. Patient was admitted for further care and pulmonary consultation is requested for evaluation and management due to the above findings. Review of Systems: 14-point review of systems negative unless otherwise noted above. Past Medical History: Asthma and heart murmur Past Surgical History: None Medications: Reviewed. Allergies: No known drug allergies. Family History: No family history of premature CAD. No family history of lung disorders. Social History: Nonsmoker. No alcohol or illicit drug use. Family History: Patient reports no known family medical history. Allergies: Coded Allergies: NO KNOWN ALLERGIES (Unverified , 01/07/25) Home Meds Reported Medications Latanoprost (LATANOPROST) 0.005 % Ana [place], 1 DROP EACHEYE HS for 75 Days, #7.5 01/10/25 Potassium Chloride (Klor-Con 8) 8 Meq Tab, 1 TAB PO DAILY for 90 Days, #90 01/10/25 Furosemide (Furosemide) 20 Mg Tab, 1 TAB PO DAILY for 90 Days, #90 01/10/25 Levothyroxine Sodium (Levothyroxine Sodium) 25 Mcg Tab, 1 TAB PO DAILY for 90 Days, #90 01/10/25 Brimonidine Tartrate (Brimonidine Tartrate) 0.2 % Ana Rosa, 1 DROP EACHEYE BID for 25 Days, #5 01/10/25 Vital Signs Vital Signs Date Time Temp Pulse Resp B/P (MAP) Pulse Ox O2 Delivery O2 Flow Rate FiO2 01/10/25 21:00 97.6 81 20 93/58 (70) 100 97.6 01/10/25 20:00 Nasal Cannula* 2 28 Physical Exam Gen.: Patient lying in bed in no apparent distress. On supplemental oxygen. Head: Normocephalic, atraumatic. Eyes: EOMI/PERRLA. Ears: Normal hearing. Normal anatomy. Neck/trachea: Trachea midline, supple. Nose: Normal external anatomy. Mouth: Moist mucous membranes. Chest: Decreased air entry bilaterally. No wheezing or rhonchi. Cardiovascular: Positive S1, positive S2. Regular rate and rhythm. Abdomen: Positive bowel sounds in all 4 quadrants. Soft, non-tender, non- distended. : Deferred. Rectal: Deferred. Skin: Warm, dry. Intact. Extremities: 2+ radial pulses bilaterally. No lower extremity edema. Neuro: Awake, alert, oriented x3. No gross motor or sensory deficits. Cranial nerves II through XII intact. Gait not assessed. Labs/Diagnostic Data Labs Test 01/10/25 05:22 01/09/25 05:54 01/08/25 13:12 01/08/25 10:25 Range/Units Sodium Level 137 136-145 mmol/L Potassium Level 4.3 3.5-5.1 mmol/L Chloride Level 98 98-107 mmol/L Carbon Dioxide Level 33 H 20-31 mmol/L Anion Gap 6 5-15 Blood Urea Nitrogen 28 H 9-23 mg/dL Creatinine 0.89 0.550-1.02 mg/dL Glomerular Filtration Rate Calc 63 >90 mL/min BUN/Creatinine Ratio 31.5 H 10.0-20.0 Serum Glucose 114 H 74-106 mg/dL Calcium Level 9.8 8.7-10.4 mg/dL Magnesium Level 2.0 1.6-2.6 mg/dL Total Bilirubin 0.6 0.2-1.0 mg/dL Aspartate Amino Transferase (AST) 35 13-40 U/L Alanine Aminotransferase (ALT) 121 H 7-40 U/L Alkaline Phosphatase 75 46-116 U/L Total Protein 6.7 5.7-8.2 g/dL Albumin 4.1 3.2-4.8 g/dL Thyroid Stimulating Hormone (TSH) 0.98 0.55-4.78 uIU/mL Troponin I High Sensitivity 25 </=34 ng/L Urine Color Yellow Yellow Urine Clarity Clear Clear Urine pH 6.5 5.0-9.0 Urine Specific [place] 1.014 1.001-1.035 Urine Protein Trace H Negative Urine Ketones Negative Negative Urine Blood Negative Negative /uL Urine Nitrite Negative Negative Urine Bilirubin Negative Negative Urine Urobilinogen Normal Negative mg/dL Urine Leukocyte Esterase 1+ Negative /uL Urine RBC None seen 0 - 4 /hpf Urine Microscopic WBC 3 0-5 /HPF Urine Squamous Epithelial Cells Few <5 /hpf Urine Bacteria Few H None Seen /hpf Urine Glucose Normal Normal mg/dL Test 01/08/25 10:12 Range/Units White Blood Count 6.6 4.4-10.8 10^3/uL Red Blood Count 4.72 4.0-5.20 10^6/uL Hemoglobin 13.8 12.2-16.2 g/dL Hematocrit 41.8 36.0-46.0 % Mean Corpuscular Volume 88.5 80.0-100.0 fL Mean Corpuscular Hemoglobin 29.1 28.0-32.0 pg Mean Corpuscular Hemoglobin Concent 33.0 32.0-36.0 g/dL Red Cell Distribution Width 18.0 H 11.8-14.3 % Platelet Count 266 140-450 10^3/uL Mean Platelet Volume 8.0 6.9-10.8 fL Neutrophils (%) (Auto) 82.1 H 37.0-80.0 % Lymphocytes (%) (Auto) 11.2 10.0-50.0 % Monocytes (%) (Auto) 5.4 0.0-12.0 % Eosinophils (%) (Auto) 0.7 0.0-7.0 % Basophils (%) (Auto) 0.6 0.0-2.0 % Neutrophils # (Auto) 5.4 1.6-8.6 10 ^3/uL Lymphocytes # (Auto) 0.7 0.4-5.4 10 ^3/uL Monocytes # (Auto) 0.4 0-1.3 10 ^3/uL Eosinophils # (Auto) 0 0-0.8 10 ^3/uL Basophils # (Auto) 0 0-0.2 10 ^3/uL Nucleated Red Blood Cells 0.1 % B-Type Natriuretic Peptide 750.22 0-100 pg/mL Assessment Impression: Acute hypoxic respiratory failure Dependence on supplemental oxygen Asthma Pulmonary edema Pneumonia, likely gram negative Pulmonary hypertension, 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 Taper O2 as tolerated. Continue bronchodilators. IV steroids Continue antibiotics Diurese to euvolemia w/ Lasix Monitor renal function. Monitor electrolytes. Supplement as necessary. Monitor ins and outs. DVT prophylaxis - Lovenox. Prognosis: Poor given patient's multiple co-morbidities. Rest of plan per hospitalist and other consultants. Thank you Dr. Pizano, for allowing me to participate in this patient's care. Further recommendations will depend on the patient's clinical course. Please do not hesitate to contact me if you have any questions or concerns. This medical document was created using an electronic medical record system with [employer] dictation system. Although these documentations are being carefully reviewed, there may still be some phonetic and typographical changes. The errors are purely typographical, due to imperfection on the software program, and do not reflect any compromise in the patient's medical care. Plan discussed with: Other (SAMANTA Joseph/Dr. Pizano) ETHEL ARNDT MD Jan 10, 2025 23:24
[2025-01-11] VITALS (12 sets, daily range): BP systolic 97–121; BP diastolic 60–80; PULSE 67–100; RESP 16–20; TEMP 97.6–98.4; O2SAT 92–98
[2025-01-11 06:24] LABS: Anion Gap 5 (5-15); Chloride 100 mmol/L (98-107); Potassium 4.2 mmol/L (3.5-5.1); Sodium 139 mmol/L (136-145)
[2025-01-11 06:25] LABS: Calcium 9.6 mg/dL (8.7-10.4)
[2025-01-11 06:31] LABS: BUN/Creatinine Ratio 37.6 (10.0-20.0)
[2025-01-11 06:35] LABS: Blood Urea Nitrogen 32 mg/dL (9-23); Carbon Dioxide 34 mmol/L (20-31); Glucose 116 mg/dL (74-106)
[2025-01-11 15:13] LABS: Base Excess 7.7 mmol/L (-2.0-3.0)
[2025-01-11] MEDS: ALBUTEROL SULF 2.5 MG/0.5ML(0.5%) NEB SOLN NEB PRN (19:16)
[2025-01-11] MEDS: IPRATROPIUM BROM 0.5 MG/2.5ML INH SOL NEB PRN (19:16)
--- NOTE | 2025-01-11 21:53 | DVHPN2 ---
Progress Note - Dictate Date Seen: Jan 11, 2025 Medical Necessity Reason Pt with a Central, PICC or Fol: No Subjective Patient seen and examined at bedside. Remains on supplemental oxygen Overnight events reviewed. vital signs Vital Sign Date Time Temp Pulse Resp B/P (MAP) Pulse Ox O2 Delivery O2 Flow Rate FiO2 01/11/25 19:16 92 16 97 01/11/25 19:16 Nasal Cannula* 2 28 01/11/25 17:35 121/75 01/11/25 16:40 97.6 97.6 Total Intake and Output 01/10/25 01/10/25 01/11/25 15:00 23:00 07:00 Intake Total 50 ml 1065 ml 550 ml Balance 50 ml 1065 ml 550 ml medications Current Medications Medications Dose Ordered Sig/Rina Route Start Time Stop Time Status Last Admin Dose Admin Nitroglycerin 0.4 mg Q5MINP PRN SL 01/08/25 11:45 Morphine Sulfate 2 mg Q30M PRN IV 01/08/25 11:45 Acetaminophen 650 mg Q6HP PRN PO 01/08/25 12:00 Ondansetron HCl 4 mg Q4HPRN PRN IV 01/08/25 12:00 Furosemide 40 mg BIDD IV 01/08/25 18:00 01/11/25 17:35 40 MG Ceftriaxone Sodium 50 ml @ 100 mls/hr DAILY@09 IV 01/09/25 09:00 01/11/25 08:25 100 MLS/HR Doxycycline Monohydrate 100 mg Q12HR PO 01/08/25 22:00 01/11/25 21:28 100 MG Levothyroxine Sodium 75 mcg QAM@0600 PO 01/09/25 06:00 01/11/25 06:23 75 MCG Albuterol 2.5 mg Q4HPRN PRN NEB 01/08/25 12:00 01/11/25 19:16 2.5 MG Ipratropium [place] 0.5 mg Q4HPRN PRN NEB 01/08/25 12:00 01/11/25 19:16 0.5 MG Zolpidem Tartrate 5 mg HSPRN PRN PO 01/08/25 12:00 Alprazolam 0.25 mg Q8HP PRN PO 01/08/25 12:00 Enoxaparin Sodium 30 mg DAILY SC 01/09/25 10:00 01/11/25 08:26 30 MG Famotidine 20 mg DAILY PO 01/09/25 10:00 01/11/25 08:26 20 MG Methylprednisolone Sodium Succinate 40 mg BID IV 01/08/25 22:00 01/11/25 21:28 40 MG objective Gen.: Patient lying in bed in no apparent distress. On supplemental oxygen. Head: Normocephalic, atraumatic. Eyes: EOMI/PERRLA. Ears: Normal hearing. Normal anatomy. Neck/trachea: Trachea midline, supple. Nose: Normal external anatomy. Mouth: Moist mucous membranes. Chest: Decreased air entry bilaterally. No wheezing or rhonchi. Cardiovascular: Positive S1, positive S2. Regular rate and rhythm. Abdomen: Positive bowel sounds in all 4 quadrants. Soft, non-tender, non- distended. : Deferred. Rectal: Deferred. Skin: Warm, dry. Intact. Extremities: 2+ radial pulses bilaterally. No lower extremity edema. Neuro: Awake, alert, oriented x3. No gross motor or sensory deficits. Cranial nerves II through XII intact. Gait not assessed. laboratory and microbiology Laboratory Tests 01/11/25 05:10 01/08/25 10:12 Test 01/11/25 05:10 Range/Units Serum Glucose 116 H 74-106 mg/dL Assessment/Plan Impression: Acute hypoxic respiratory failure Dependence on supplemental oxygen Asthma Pulmonary edema Pneumonia, likely gram negative Pulmonary hypertension, RVSP 58 mmHg, WHO class II Events: Remains on supplemental oxygen, 2 LPM NC Taper O2 as tolerated Arrange home oxygen Continue bronchodilators Continue IV steroids Incentive spirometry Diurese as tolerated w/ Lasix Monitor renal function. Monitor electrolytes. Supplement as necessary. Disposition per hospitalist. Labs and imaging reviewed. Rest of plan as noted below. Plan: Supplemental oxygen Titrate to keep O2 sats above 92%. Continue bronchodilators. IV steroids Continue antibiotics Diurese to euvolemia Monitor renal function. Monitor electrolytes. Supplement as necessary. Monitor ins and outs. DVT prophylaxis - Lovenox. Prognosis: Poor given patient's multiple co-morbidities. Rest of plan per hospitalist and other consultants. Thank you Dr. Pizano, for allowing me to participate in this patient's care. Further recommendations will depend on the patient's clinical course. Please do not hesitate to contact me if you have any questions or concerns. This medical document was created using an electronic medical record system with [employer] computerized dictation system. Although these documentations are being carefully reviewed, there may still be some phonetic and typographical changes. The errors are purely typographical, due to imperfection on the software program, and do not reflect any compromise in the patient's medical care. Dietary Evaluation Review Comments: 1) Prostat 1 pk BID (ordered per protocol) 2) Continue current plan of care Expected Outcomes/Goals: To meet >75% estimated needs Fu 3-5 days Plan discussed with: Patient, Other (SAMANTA Joseph) ETHEL ARNDT MD Jan 11, 2025 21:53
[2025-01-12 01:00] VITALS: BP 86/51; PULSE 79; RESP 18; TEMP 98.1; O2SAT 95
[2025-01-12 05:00] VITALS: BP 110/69; PULSE 79; RESP 18; TEMP 98.3; O2SAT 95
[2025-01-12 08:00] VITALS: PULSE 84
[2025-01-12 08:42] VITALS: BP 126/80; PULSE 83; RESP 17; TEMP 97.9; O2SAT 97
[2025-01-12] MEDS ORDERED: FURO1TAB31 PO (10:11)
--- NOTE | 2025-01-12 10:16 | DVHDS2 ---
Discharge Summary Date of Admission Jan 08, 2025 at 11:45 Date of Discharge: Jan 12, 2025 Labs/Diagnostic Data: Laboratory Results Test 01/11/25 15:07 01/11/25 05:10 01/09/25 05:54 01/08/25 13:12 Blood Gas Specimen Type Arterial Blood Gas Sample Site Right radial Blood Gas Patient Temperature 37.0 Arterial Blood Date Drawn [id number] Arterial Blood pH 7.415 (7.350-7.450) Arterial Blood Partial Pressure CO2 54.1 mmHg (32.0-45.0) Arterial Blood Partial Pressure O2 44.8 mmHg (83.0-108.0) Arterial Blood HCO3 33.9 mmol/L (21.0-28.0) Arterial Blood Oxygen Saturation 79.6 % (94.0-98.0) Arterial Blood Base Excess 7.7 mmol/L (-2.0-3.0) Arterial Blood Oxyhemoglobin 78.5 % (94.0-98.0) Arterial Blood Carboxyhemoglobin 1.0 % (0.5-1.5) Arterial Blood Methemoglobin 0.4 % (0.0-1.5) Farrukh Test Modified Blood Gas Total Hemoglobin 13.60 g/dL (12.0-16.0) Blood Gas Modality Room air FiO2 % 21.0 Blood Gas Critical Value Read Back yes Blood Gas Notified Whom Adair howell md Blood Gas Notified Time [id number] Blood Gas Notified By cork tipper tulio linares Sodium Level 139 mmol/L (136-145) Potassium Level 4.2 mmol/L (3.5-5.1) Chloride Level 100 mmol/L (98-107) Carbon Dioxide Level 34 mmol/L (20-31) Anion Gap 5 (5-15) Blood Urea Nitrogen 32 mg/dL (9-23) Creatinine 0.85 mg/dL (0.550-1.02) Glomerular Filtration Rate Calc 67 mL/min (>90) BUN/Creatinine Ratio 37.6 (10.0-20.0) Serum Glucose 116 mg/dL (74-106) Calcium Level 9.6 mg/dL (8.7-10.4) Magnesium Level 2.0 mg/dL (1.6-2.6) Total Bilirubin 0.6 mg/dL (0.2-1.0) Aspartate Amino Transferase (AST) 35 U/L (13-40) Alanine Aminotransferase (ALT) 121 U/L (7-40) Alkaline Phosphatase 75 U/L (46-116) Total Protein 6.7 g/dL (5.7-8.2) Albumin 4.1 g/dL (3.2-4.8) Thyroid Stimulating Hormone (TSH) 0.98 uIU/mL (0.55-4.78) Troponin I High Sensitivity 25 ng/L (</=34) Test 01/08/25 10:25 01/08/25 10:12 Urine Color Yellow (Yellow) Urine Clarity Clear (Clear) Urine pH 6.5 (5.0-9.0) Urine Specific [place] 1.014 (1.001-1.035) Urine Protein Trace (Negative) Urine Ketones Negative (Negative) Urine Blood Negative /uL (Negative) Urine Nitrite Negative (Negative) Urine Bilirubin Negative (Negative) Urine Urobilinogen Normal mg/dL (Negative) Urine Leukocyte Esterase 1+ /uL (Negative) Urine RBC None seen /hpf (0 - 4) Urine Microscopic WBC 3 /HPF (0-5) Urine Squamous Epithelial Cells Few /hpf (<5) Urine Bacteria Few /hpf (None Seen) Urine Glucose Normal mg/dL (Normal) White Blood Count 6.6 10^3/uL (4.4-10.8) Red Blood Count 4.72 10^6/uL (4.0-5.20) Hemoglobin 13.8 g/dL (12.2-16.2) Hematocrit 41.8 % (36.0-46.0) Mean Corpuscular Volume 88.5 fL (80.0-100.0) Mean Corpuscular Hemoglobin 29.1 pg (28.0-32.0) Mean Corpuscular Hemoglobin Concent 33.0 g/dL (32.0-36.0) Red Cell Distribution Width 18.0 % (11.8-14.3) Platelet Count 266 10^3/uL (140-450) Mean Platelet Volume 8.0 fL (6.9-10.8) Neutrophils (%) (Auto) 82.1 % (37.0-80.0) Lymphocytes (%) (Auto) 11.2 % (10.0-50.0) Monocytes (%) (Auto) 5.4 % (0.0-12.0) Eosinophils (%) (Auto) 0.7 % (0.0-7.0) Basophils (%) (Auto) 0.6 % (0.0-2.0) Neutrophils # (Auto) 5.4 10 ^3/uL (1.6-8.6) Lymphocytes # (Auto) 0.7 10 ^3/uL (0.4-5.4) Monocytes # (Auto) 0.4 10 ^3/uL (0-1.3) Eosinophils # (Auto) 0 10 ^3/uL (0-0.8) Basophils # (Auto) 0 10 ^3/uL (0-0.2) Nucleated Red Blood Cells 0.1 % B-Type Natriuretic Peptide 750.22 pg/mL (0-100) Other Laboratory Tests 01/11/25 05:10 01/08/25 10:12 Brief Hx & Hospital Course: Final diagnoses: Acute hypoxic respiratory failure Systolic murmur Acute on chronic diastolic heart failure Mitral valve moderate stenosis and mild regurgitation Pulmonary hypertension Asthma Hypothyroidism Glaucoma Pulmonary edema 84 year old female was admitted for fluid overload due to heart failure Echo showed diastolic HF with mitral valve stenosis and regurg She was given IV Lasix Her edema is better She was still hypoxic however and therefore she needed home O2 She will be discharged home on home O2 on Lasix 40 mg qd Condition at Discharge: Stable Final Diagnosis/Problems List Acute hypoxic respiratory failure Systolic murmur Acute on chronic diastolic heart failure Mitral valve moderate stenosis and mild regurgitation Pulmonary hypertension Asthma Hypothyroidism Glaucoma Pulmonary edema Discharge Disposition: Home SNF Discharge Will this Physician continue t: No Discharge Statement: "Patient was advised to return to the ER or call 911 if any headaches, dizziness, shortness of breath, chest pain, abdominal pain, bleeding, fevers, or worsening of medical condition. Patient was counseled about treatment plan, medications, possible side effects, patientverbalized understanding. All questions were answered to the best of my ability. This discharge took greater then 30 minutes in planning, reviewing documentation, counseling the patient, and discussing with other team members." ASSESSMENT ASSESSMENT Assessment Date of Service: Jan 12, 2025 Billing Provider: SELVIN HOWELL MD Common Visit Codes: NOT BILLABLE SELVIN HOWELL MD Jan 12, 2025 10:16
[2025-01-12 10:32] VITALS: O2SAT 99
[2025-01-12 13:00] VITALS: BP 123/80; PULSE 85; RESP 17; TEMP 97.4; O2SAT 97
--- NOTE | 2025-01-12 21:12 | DVHPN2 ---
Progress Note - Dictate Date Seen: Jan 12, 2025 Medical Necessity Reason Pt with a Central, PICC or Fol: No Subjective Patient seen and examined at bedside. Remains on supplemental oxygen Overnight events reviewed. vital signs Vital Sign Date Time Temp Pulse Resp B/P (MAP) Pulse Ox O2 Delivery O2 Flow Rate FiO2 01/12/25 13:00 97.4 85 17 123/80 (94) 97 97.4 01/12/25 10:32 Room Air* 0 21 Total Intake and Output 01/11/25 01/11/25 01/12/25 15:00 23:00 07:00 Intake Total 50 ml 640 ml 400 ml Output Total 600 ml Balance 50 ml 640 ml -200 ml objective Gen.: Patient lying in bed in no apparent distress. On supplemental oxygen. Head: Normocephalic, atraumatic. Eyes: EOMI/PERRLA. Ears: Normal hearing. Normal anatomy. Neck/trachea: Trachea midline, supple. Nose: Normal external anatomy. Mouth: Moist mucous membranes. Chest: Decreased air entry bilaterally. No wheezing or rhonchi. Cardiovascular: Positive S1, positive S2. Regular rate and rhythm. Abdomen: Positive bowel sounds in all 4 quadrants. Soft, non-tender, non- distended. : Deferred. Rectal: Deferred. Skin: Warm, dry. Intact. Extremities: 2+ radial pulses bilaterally. No lower extremity edema. Neuro: Awake, alert, oriented x3. No gross motor or sensory deficits. Cranial nerves II through XII intact. Gait not assessed. laboratory and microbiology Laboratory Tests 01/11/25 05:10 01/08/25 10:12 Test 01/11/25 05:10 Range/Units Serum Glucose 116 H 74-106 mg/dL Assessment/Plan Impression: Acute hypoxic respiratory failure Dependence on supplemental oxygen Asthma Pulmonary edema Pneumonia, likely gram negative Pulmonary hypertension, RVSP 58 mmHg, WHO class II Events: Remains on supplemental oxygen, 2 LPM NC Taper O2 as tolerated Arranging home oxygen Continue IV steroids Continue antibiotics Incentive spirometry Diurese as tolerated w/ Lasix Monitor renal function. Monitor electrolytes. Supplement as necessary. Patient is stable for discharge from the pulmonary standpoint. Disposition per hospitalist. Follow up in 1-2 weeks in Pulmonary Clinic. Labs and imaging reviewed. Rest of plan as noted below. Plan: Supplemental oxygen Titrate to keep O2 sats above 92%. Continue IV steroids Continue antibiotics Diurese to euvolemia Monitor renal function. Monitor electrolytes. Supplement as necessary. Monitor ins and outs. DVT prophylaxis - Lovenox. Prognosis: Poor given patient's multiple co-morbidities. Rest of plan per hospitalist and other consultants. Thank you Dr. Pizano, for allowing me to participate in this patient's care. Further recommendations will depend on the patient's clinical course. Please do not hesitate to contact me if you have any questions or concerns. This medical document was created using an electronic medical record system with [employer] dictation system. Although these documentations are being carefully reviewed, there may still be some phonetic and typographical changes. The errors are purely typographical, due to imperfection on the software program, and do not reflect any compromise in the patient's medical care. Dietary Evaluation Review Comments: 1) Prostat 1 pk BID (ordered per protocol) 2) Continue current plan of care Expected Outcomes/Goals: To meet >75% estimated needs Fu 3-5 days Plan discussed with: Patient, Other (SAMANTA Watts) ETHEL ARNDT MD Jan 12, 2025 21:12
== END 2025-01-12 15:30 | disposition home or self-care (01) | DRG 177 ==
LOC: ER 10:00 → OVERFLOW 11:45 → TELE-WESTW 21:19
PROVIDERS: ADMIT Internal Medicine Geriatric Medicine; ATTEND Internal Medicine Geriatric Medicine
DX: J15.69 Pneumonia due to other Gram-negative bacteria (principal); I50.33 Acute on chronic diastolic (congestive) heart failure; J96.01 Acute respiratory failure with hypoxia; J45.901 Unspecified asthma with (acute) exacerbation; I11.0 Hypertensive heart disease with heart failure; J15.9 Unspecified bacterial pneumonia; E03.9 Hypothyroidism, unspecified; H40.9 Unspecified glaucoma; E78.5 Hyperlipidemia, unspecified; Z99.81 Dependence on supplemental oxygen; I27.20 Pulmonary hypertension, unspecified; I05.2 Rheumatic mitral stenosis with insufficiency; Z79.899 Other long term (current) drug therapy
CPT/HCPCS: 36415; 36600; 71045; 80048; 80053; 81001; 82805; 83735; 83880; 84443; 84484; 85025; 93005; 93306; 94640; 96365; 96375; 99291; 99292; G0378